=== PATIENT | female | born 1945 | race Caucasian/White ===

== ENCOUNTER → 2016-08-20 | Outpatient (CLI) | payer MEDICARE ==
[~2016-08-20] MED LIST: ABAT250V IV; ASPI-621 PO; ATOR80TA75 PO; BIOT5TAB PO; CITA20TA5 PO; CLON0.5T PO; CYAN100028 PO; DENO60DI IM; HYDR-883 PO; LISI1TAB5 PO; MAGN400C3 PO; METHATREXATE IV; MIRA50TA PO; MULT-516 PO; MV,C400T3 PO; OMEP-110 PO; PREDNISONE PO; SALM1CAP2 PO; VITA1TAB19 PO
[2016-08-20 14:48] LABS: ASPARTATE AMINO TRANSFERASE 34 U/L (15-37); BLOOD UREA NITROGEN 18 mg/dL (7-18)
== END | disposition home or self-care (01) ==
LOC: STAR 13:38
PROVIDERS: ATTEND Specialist
DX: Z01.818 Encounter for other preprocedural examination (principal); M47.894 Other spondylosis, thoracic region; D25.9 Leiomyoma of uterus, unspecified; Z98.1 Arthrodesis status; R79.1 Abnormal coagulation profile
CPT/HCPCS: 36415; 71020; 80053; 85025; 85610; 85730; 93005

== ENCOUNTER 2016-09-02 07:30 | Day surgery (SDC) | payer MEDICARE ==
[~2016-09-02] VITALS: Ht 157.5 cm; Wt 65.0 kg
[~2016-09-02 07:30] MED LIST changes: +BUPIVACAINE/PF-EPI 0.25% 1:200K ONE
[2016-09-02] MEDS ORDERED: OXYTOCIN 10 UNITS/ML, 1ML ONE (09:30)
[2016-09-02] MEDS ORDERED: MISOPROSTOL 200 MCG TABLET ONE (09:31)
[2016-09-02] MEDS ORDERED: SILVER NITRATE STICK TP ONE (09:31)
[2016-09-02] MEDS ORDERED: METHYLERGONOVINE 0.2 MG/ML IM ONE (09:31)
[2016-09-02] MEDS ORDERED: VASOPRESSIN 20 UNIT/ML, 1ML ONE (09:31)
[2016-09-02] MEDS ORDERED: HYDROCORTISONE 100 MG INJ. ONE (09:36)
[2016-09-02] MEDS ORDERED: FENTANYL PF 100 MCG/2ML ONE ×2 (09:39→10:16)
[2016-09-02] MEDS ORDERED: PROPOFOL 10 MG/ML, 20ML ONE (09:46)
[2016-09-02] MEDS ORDERED: ONDANSETRON 2MG/ML, 2ML ONE ×2 (09:46→10:37)
[2016-09-02] MEDS: FENTANYL PF 100 MCG/2ML IV PRN ×2 (10:15→10:30)
[2016-09-02] MEDS ORDERED: OXYcodone 5 MG/5 ML ORAL.SOL UDC ONE (10:16)
[2016-09-04] MEDS ORDERED: OXYcodone 5 MG/5 ML ORAL.SOL UDC PO PRN (09:00)
[2016-09-04] MEDS ORDERED: ONDANSETRON 2MG/ML, 2ML IVPush PRN (09:00)
[2016-09-05] MEDS ORDERED: LACTATED RINGERS 1,000 ML IV SCH (12:11)
== END 2016-09-02 13:00 | disposition home or self-care (01) ==
LOC: OR 07:30
PROVIDERS: ATTEND Specialist
DX: N95.0 Postmenopausal bleeding (principal); M06.9 Rheumatoid arthritis, unspecified; I10 Essential (primary) hypertension; K21.9 Gastro-esophageal reflux disease without esophagitis; E78.5 Hyperlipidemia, unspecified; Z88.3 Allergy status to other anti-infective agents; Z98.1 Arthrodesis status; Z90.49 Acquired absence of other specified parts of digestive tract; Z96.651 Presence of right artificial knee joint; F39 Unspecified mood [affective] disorder; Z72.89 Other problems related to lifestyle; Z87.891 Personal history of nicotine dependence; Z82.49 Family history of ischemic heart disease and other diseases of the circulatory system
CPT/HCPCS: 58120; 88305; J1720; J2405; J2704; J3010; J2210; J2590

== ENCOUNTER 2017-06-18 08:11 | Inpatient (IN) | payer MEDICARE ==
[~2017-06-18] VITALS: Ht 157.5 cm; Wt 67.0 kg
[~2017-06-18 08:11] MED LIST changes: +ATOR-2 PO; -ATOR80TA75 PO; +BACITRACIN 50,000 UNIT ONE; +BUPIVACAINE/PF 0.5% ONE; -BUPIVACAINE/PF-EPI 0.25% 1:200K ONE; +EPINEPHRINE 1 MG/ML, 1ML ONE; +THROMBIN 5,000 UNIT VIAL TP ONE; +VANCOMYCIN 1,000 MG ONE
[2017-06-18 09:19] VITALS: BP 138/79
[2017-06-18] MEDS ORDERED: HYDR25TA11 PO (09:32)
[2017-06-18] MEDS ORDERED: METHOCARBAMOL PO (09:32)
[2017-06-18] MEDS ORDERED: LACTATED RINGERS 1,000 ML IV SCH (09:37)
[2017-06-18] MEDS ORDERED: MIDAZOLAM 1 MG/ML, 2ML ONE (10:32)
[2017-06-18] MEDS ORDERED: FENTANYL PF 250 MCG/5ML ONE ×2 (10:33→12:55)
[2017-06-18] MEDS ORDERED: DEXAMETHASONE 4 MG/ML, 5ML ONE (10:43)
[2017-06-18] MEDS ORDERED: ONDANSETRON 2MG/ML, 2ML ONE (10:43)
[2017-06-18] MEDS ORDERED: NEOSTIGMINE 1 MG/ML, 10ML ONE (10:43)
[2017-06-18] MEDS ORDERED: GLYCOPYRROLATE 0.2MG/1ML, 5ML ONE (10:43)
[2017-06-18] MEDS ORDERED: ROCURONIUM 10 MG/ML,10ML ONE (10:43)
[2017-06-18] MEDS ORDERED: CEFAZOLIN 1,000 MG ONE (10:43)
[2017-06-18] MEDS ORDERED: PROPOFOL 10 MG/ML, 20ML ONE (10:43)
[2017-06-18] MEDS ORDERED: HEPARIN 1,000 UNITS/ML, 30ML ONE (11:24)
[2017-06-18] MEDS ORDERED: HEPARIN 1,000 UNITS/ML, 30ML IVPB ONE (11:29)
[2017-06-18] MEDS ORDERED: morphine SULFATE 10 MG/ML, 1ML IV PRN ×2 (15:00→18:30)
[2017-06-18] MEDS ORDERED: DIAZEPAM 5 MG TABLET PO ONE (15:00)
[2017-06-18] MEDS ORDERED: ONDANSETRON 2MG/ML, 2ML IVPush PRN (15:00)
[2017-06-18] MEDS ORDERED: ACETAMINOPHEN 325 MG TABLET PO PRN (15:00)
[2017-06-18] MEDS ORDERED: OXYcodone 5 MG/5 ML ORAL.SOL UDC PO PRN (15:00)
[2017-06-18] MEDS ORDERED: LABETALOL 5MG/ML, 20ML IV PRN (15:00)
[2017-06-18] MEDS ORDERED: FENTANYL PF 100 MCG/2ML IV PRN (15:00)
[2017-06-18] MEDS ORDERED: HYDROmorphone 2 MG/ML, 1ML ONE (15:01)
[2017-06-18] MEDS ORDERED: HYDROmorphone PCA 30 MG/30 ML ONE (15:30)
[2017-06-18] MEDS ORDERED: HYDROmorphone PCA 30 MG/30 ML IV PRN (15:30)
[2017-06-18] MEDS ORDERED: PHARMACY MAY ADJ FOR RENAL FX MC PRN (17:30)
[2017-06-18] MEDS ORDERED: MAGNESIUM HYDROXIDE 8%, 30ML UDC PO PRN (18:30)
[2017-06-18] MEDS ORDERED: BISACODYL 10 MG SUPP PR PRN (18:30)
[2017-06-18] MEDS ORDERED: DIPHENHYDRAMINE 50 MG/ML, 1ML IVPush PRN (18:30)
[2017-06-18] MEDS ORDERED: DIPHENHYDRAMINE 25 MG CAPSULE PO PRN (18:30)
[2017-06-18] MEDS ORDERED: ONDANSETRON 2MG/ML, 2ML IV PRN (18:30)
[2017-06-18] MEDS ORDERED: OXYcodone/APAP 5/325MG TABLET PO PRN (18:30)
[2017-06-18] MEDS: NS + 20MEQ KCL 1,000 ML IV SCH (18:37)
[2017-06-18] MEDS: CEFAZOLIN PMX 1GM/50ML 50 ML IVPB SCH (18:37)
[2017-06-18 20:14] VITALS: BP 125/73
[2017-06-18] MEDS ORDERED: TIZANIDINE 4MG TABLET ONE (23:00)
[2017-06-18] MEDS: TIZANIDINE 2MG TABLET PO PRN (23:02)
[2017-06-18] MEDS: ATORVASTATIN 80 MG TABLET PO SCH (23:02)
[2017-06-18 23:55] VITALS: BP 103/69
[2017-06-19] MEDS: CEFAZOLIN PMX 1GM/50ML 50 ML IVPB SCH (02:51)
[2017-06-19 03:59] VITALS: BP 115/72
[2017-06-19 05:38] LABS: BASOPHILS # (AUTO) 0.01 x10^3/uL (0-0.1); BASOPHILS % (AUTO) 0 % (0-1); EOSINOPHILS % (AUTO) 0 % (1-7); LYMPHOCYTES # (AUTO) 1.16 x10^3/uL (1-3.4); LYMPHOCYTES % (AUTO) 9 % (22-44); MD NO; MEAN CORPUSCULAR HGB CONC 33.3 g/dL (32.4-35.8); MEAN CORPUSCULAR VOLUME 93.3 fL (80-100); MEAN PLATELET VOLUME 9.3 fL (7.4-10.4); MONOCYTES # (AUTO) 1.38 x10^3/uL (0.2-0.8); MONOCYTES % (AUTO) 10 % (2-9); NEUTROPHILS # (AUTO) 10.69 x10^3/uL (1.8-6.8); NEUTROPHILS % (AUTO) 81 % (42-75); PLATELET COUNT 220 x10^3/uL (130-400); RED BLOOD COUNT 3.47 x10^6/uL (3.82-5.3); RED CELL DISTRIBUTION WIDTH 15.9 % (9.6-15.2)
[2017-06-19 05:52] LABS: ANION GAP 6 mmol/L (5-15); CALCIUM 7.5 mg/dL (8.5-10.1); CHLORIDE 110 mmol/L (98-107)
[2017-06-19] MEDS ORDERED: TIZANIDINE 4MG TABLET ONE (07:52)
[2017-06-19] MEDS: OMEPRAZOLE 20 MG CAPSULE.DR PO SCH (07:56)
[2017-06-19] MEDS: CITALOPRAM 20 MG TABLET PO SCH (07:57)
[2017-06-19] MEDS: SENNA/DOCUSATE TABLET PO SCH (07:57)
[2017-06-19] MEDS: TIZANIDINE 2MG TABLET PO PRN (07:57)
[2017-06-19] MEDS: HYDROCHLOROTHIAZIDE 12.5 MG CAPSULE PO SCH (07:57)
[2017-06-19 08:26] VITALS: BP 112/60
[2017-06-19] MEDS: NS + 20MEQ KCL 1,000 ML IV SCH ×2 (11:52→22:00)
[2017-06-19 12:00] VITALS: BP 88/52
[2017-06-19] MEDS: DIAZEPAM 5 MG TABLET PO PRN ×2 (13:02→20:53)
[2017-06-19] MEDS: HYDROcodone/APAP 10/325 MG TABLET PO PRN ×2 (18:09→22:20)
[2017-06-19 19:23] VITALS: BP 103/62
[2017-06-19] MEDS: ATORVASTATIN 80 MG TABLET PO SCH (20:53)
[2017-06-19] MEDS: LISINOPRIL 20 MG TABLET PO SCH (20:53)
[2017-06-20 01:59] VITALS: BP 101/61
[2017-06-20 05:52] LABS: CHLORIDE 104 mmol/L (98-107)
[2017-06-20 05:58] LABS: ANION GAP 7 mmol/L (5-15); CALCIUM 7.4 mg/dL (8.5-10.1); CREATININE 0.51 mg/dL (0.55-1.02)
[2017-06-20 06:05] LABS: BASOPHILS # (AUTO) 0.01 x10^3/uL (0-0.1); BASOPHILS % (AUTO) 0 % (0-1); EOSINOPHILS # (AUTO) 0.01 x10^3/uL (0-0.4); EOSINOPHILS % (AUTO) 0 % (1-7); LYMPHOCYTES # (AUTO) 1.25 x10^3/uL (1-3.4); LYMPHOCYTES % (AUTO) 15 % (22-44); MD NO; MEAN CORPUSCULAR HEMOGLOBIN 30.6 pg (27.0-34.8); MEAN CORPUSCULAR HGB CONC 33.3 g/dL (32.4-35.8); MEAN CORPUSCULAR VOLUME 91.8 fL (80-100); MEAN PLATELET VOLUME 9.6 fL (7.4-10.4); MONOCYTES # (AUTO) 0.93 x10^3/uL (0.2-0.8); MONOCYTES % (AUTO) 11 % (2-9); NEUTROPHILS # (AUTO) 6.11 x10^3/uL (1.8-6.8); NEUTROPHILS % (AUTO) 74 % (42-75); PLATELET COUNT 136 x10^3/uL (130-400); RED BLOOD COUNT 2.65 x10^6/uL (3.82-5.3); RED CELL DISTRIBUTION WIDTH 15.3 % (9.6-15.2)
[2017-06-20] MEDS: HYDROcodone/APAP 10/325 MG TABLET PO PRN ×3 (07:41→20:28)
[2017-06-20] MEDS: OMEPRAZOLE 20 MG CAPSULE.DR PO SCH (07:42)
[2017-06-20] MEDS: CITALOPRAM 20 MG TABLET PO SCH (07:42)
[2017-06-20] MEDS: HYDROCHLOROTHIAZIDE 12.5 MG CAPSULE PO SCH (07:42)
[2017-06-20] MEDS: SENNA/DOCUSATE TABLET PO SCH (07:42)
[2017-06-20 07:56] VITALS: BP 103/65
[2017-06-20] MEDS: NS + 20MEQ KCL 1,000 ML IV SCH ×2 (08:00→18:00)
[2017-06-20 08:07] VITALS: BP 112/77
[2017-06-20] MEDS: DIAZEPAM 5 MG TABLET PO PRN (13:27)
[2017-06-20 15:28] VITALS: BP 109/59
[2017-06-20 19:14] VITALS: BP 113/63
[2017-06-20] MEDS: ATORVASTATIN 80 MG TABLET PO SCH (20:28)
[2017-06-20] MEDS: LISINOPRIL 20 MG TABLET PO SCH (20:29)
[2017-06-21 02:15] VITALS: BP 93/54
[2017-06-21] MEDS: NS + 20MEQ KCL 1,000 ML IV SCH ×2 (04:00→10:57)
[2017-06-21 05:29] LABS: CHLORIDE 107 mmol/L (98-107)
[2017-06-21 05:33] LABS: BASOPHILS # (AUTO) 0.01 x10^3/uL (0-0.1); BASOPHILS % (AUTO) 0 % (0-1); EOSINOPHILS # (AUTO) 0.08 x10^3/uL (0-0.4); EOSINOPHILS % (AUTO) 1 % (1-7); LYMPHOCYTES # (AUTO) 1.27 x10^3/uL (1-3.4); LYMPHOCYTES % (AUTO) 18 % (22-44); MD NO; MEAN CORPUSCULAR HEMOGLOBIN 30.9 pg (27.0-34.8); MEAN CORPUSCULAR HGB CONC 33.4 g/dL (32.4-35.8); MEAN CORPUSCULAR VOLUME 92.3 fL (80-100); MEAN PLATELET VOLUME 9.4 fL (7.4-10.4); MONOCYTES # (AUTO) 0.84 x10^3/uL (0.2-0.8); MONOCYTES % (AUTO) 12 % (2-9); NEUTROPHILS # (AUTO) 4.84 x10^3/uL (1.8-6.8); NEUTROPHILS % (AUTO) 69 % (42-75); PLATELET COUNT 121 x10^3/uL (130-400); RED BLOOD COUNT 2.58 x10^6/uL (3.82-5.3); RED CELL DISTRIBUTION WIDTH 15.6 % (9.6-15.2)
[2017-06-21 05:38] LABS: ANION GAP 4 mmol/L (5-15); CALCIUM 7.6 mg/dL (8.5-10.1)
[2017-06-21] MEDS: OMEPRAZOLE 20 MG CAPSULE.DR PO SCH (08:14)
[2017-06-21] MEDS: CITALOPRAM 20 MG TABLET PO SCH (08:14)
[2017-06-21] MEDS: SENNA/DOCUSATE TABLET PO SCH (08:15)
[2017-06-21] MEDS: HYDROcodone/APAP 10/325 MG TABLET PO PRN (08:15)
[2017-06-21] MEDS: HYDROCHLOROTHIAZIDE 12.5 MG CAPSULE PO SCH (08:16)
[2017-06-21] MEDS: LISINOPRIL 20 MG TABLET PO SCH (08:17)
[2017-06-21 08:40] VITALS: BP 89/55
[2017-06-21] MEDS ORDERED: TIZANIDINE 4MG TABLET ONE (12:18)
[2017-06-21] MEDS: TIZANIDINE 2MG TABLET PO PRN (12:19)
[2017-06-21 13:39] VITALS: BP 78/48
[2017-06-21 20:16] VITALS: BP 104/63
[2017-06-21] MEDS: ATORVASTATIN 80 MG TABLET PO SCH (20:43)
[2017-06-22 02:26] VITALS: BP 111/68
[2017-06-22 06:21] LABS: MEAN CORPUSCULAR HEMOGLOBIN 30.8 pg (27.0-34.8); MEAN CORPUSCULAR HGB CONC 33.8 g/dL (32.4-35.8); MEAN CORPUSCULAR VOLUME 91.2 fL (80-100); MEAN PLATELET VOLUME 9.4 fL (7.4-10.4); PLATELET COUNT 147 x10^3/uL (130-400); RED BLOOD COUNT 2.51 x10^6/uL (3.82-5.3); RED CELL DISTRIBUTION WIDTH 15.2 % (9.6-15.2)
[2017-06-22 06:24] LABS: BASOPHILS # (AUTO) 0.02 x10^3/uL (0-0.1); BASOPHILS % (AUTO) 0 % (0-1); EOSINOPHILS # (AUTO) 0.08 x10^3/uL (0-0.4); EOSINOPHILS % (AUTO) 1 % (1-7); LYMPHOCYTES # (AUTO) 1.27 x10^3/uL (1-3.4); LYMPHOCYTES % (AUTO) 22 % (22-44); MD SCAN; MONOCYTES # (AUTO) 0.58 x10^3/uL (0.2-0.8); MONOCYTES % (AUTO) 10 % (2-9); NEUTROPHILS # (AUTO) 3.93 x10^3/uL (1.8-6.8); NEUTROPHILS % (AUTO) 67 % (42-75)
[2017-06-22 08:10] VITALS: BP 113/67
[2017-06-22] MEDS: CITALOPRAM 20 MG TABLET PO SCH (08:58)
[2017-06-22] MEDS: SENNA/DOCUSATE TABLET PO SCH (09:00)
[2017-06-22] MEDS: HYDROCHLOROTHIAZIDE 12.5 MG CAPSULE PO SCH (09:00)
[2017-06-22] MEDS: LISINOPRIL 20 MG TABLET PO SCH (09:00)
[2017-06-22] MEDS: OMEPRAZOLE 20 MG CAPSULE.DR PO SCH (09:04)
[2017-06-22] MEDS: HYDROcodone/APAP 10/325 MG TABLET PO PRN ×2 (09:35→13:45)
[2017-06-22] MEDS ORDERED: TIZANIDINE 4MG TABLET ONE (09:43)
[2017-06-22] MEDS: TIZANIDINE 2MG TABLET PO PRN (09:44)
[2017-06-22] MEDS: NS + 20MEQ KCL 1,000 ML IV SCH ×2 (10:00)
[2017-06-22 11:43] VITALS: BP 81/43
[2017-06-22 11:59] VITALS: BP 81/43
[2017-06-22 12:24] VITALS: BP 91/50
[2017-06-22 14:15] VITALS: BP 112/71
[2017-06-22] MEDS ORDERED: HYDR-3307 PO (15:58)
[2017-06-22] MEDS ORDERED: TIZA2CAP2 PO (15:59)
== END 2017-06-22 16:15 | disposition home or self-care (01) | DRG 460 ==
LOC: ORIP 08:11 → 4NOR 16:57
PROVIDERS: ADMIT Neurological Surgery; ATTEND Neurological Surgery
PROC: 01NB0ZZ Release Lumbar Nerve, Open Approach (ICD-10-PCS; 2017-06-18)
PROC: 00QT0ZZ Repair Spinal Meninges, Open Approach (ICD-10-PCS; 2017-06-18)
PROC: 0SG30AJ Fusion of Lumbosacral Joint with Interbody Fusion Device, Posterior Approach, Anterior Column, Open Approach (ICD-10-PCS; principal; 2017-06-18 10:30)
DX: M48.061 Spinal stenosis, lumbar region without neurogenic claudication (principal); G96.19 Other disorders of meninges, not elsewhere classified; M06.9 Rheumatoid arthritis, unspecified; F41.9 Anxiety disorder, unspecified; W18.39XA Other fall on same level, initial encounter; M43.16 Spondylolisthesis, lumbar region; Y93.89 Activity, other specified; Y92.89 Other specified places as the place of occurrence of the external cause; Y99.8 Other external cause status
CPT/HCPCS: 36415; 72100; 80048; 85014; 85018; 85025; 86850; 86900; 86923; 95938; 95941; C1713; C1776; J0171; J0690; J1100; J1170; J1644; J2250; J2405; J2704; J2710; J3010; J3370; J3480; J3490; J7512; C1762; J7120; P9016; Q0177